=== PATIENT | female | born 1950 | race Hispanic/Latino ===

== ENCOUNTER 2020-02-12 09:02 | Inpatient (IN) | payer MEDICARE, OTHER ==
[~2020-02-12] VITALS: Ht 165.1 cm; Wt 104.3 kg
[2020-02-12] MEDS ORDERED: MORPHINE SULFATE INJ 4 MG/ML INJ 1ML IV SCH (09:30)
--- NOTE | 2020-02-12 09:35 | NUR ---
Ultrasound ETA is 45 minutes
[2020-02-12] MEDS ORDERED: HYDRALAZINE HCL 20 MG/ML VIAL IV STA (09:44)
[2020-02-12] MEDS ORDERED: MORPHINE SULFATE INJ 4 MG/ML INJ 1ML ONE ×2 (09:50→11:09)
[2020-02-12] MEDS ORDERED: HYDRALAZINE HCL 20 MG/ML VIAL ONE (11:09)
[2020-02-12] MEDS ORDERED: MORPHINE SULFATE 2 MG/ML SYR 1ML IV STA (11:14)
--- NOTE | 2020-02-12 11:17 | Diagnostic Imaging Report ---
CT BRAIN [facility] HISTORY: Altered mental status, remote stroke COMPARISON: None. Technique: Noncontrast axial scans were obtained from skull base to the vertex. Coronal and sagittal reconstructions obtained from the axial data. One or more of the following dose reduction techniques were used: Automated exposure control, adjustment of the mA and/or kV according to patient size, and/or utilization of iterative reconstruction technique. DISCUSSION: Scalp/Skull: Left pterional craniotomy changes. Right coronal calvarial bhupinder hole for ventricular shunt catheter. Brain sulci: Mildly prominent. Ventricles: Compensatory dilatation, especially of the left lateral ventricle. Right frontal approach ventricular shunt catheter terminates in the body of the left lateral ventricle. Extra-axial spaces: Aneurysm clips in the left parasellar region. No masses or fluid collections. Carotid siphon calcifications are present. Parenchyma: Extensive encephalomalacia throughout the left middle cerebral artery territory is compatible with remote infarct. Mild focal superior right frontal encephalomalacia is seen along the ventricular catheter tract. Otherwise, no masses, hemorrhage, or large vascular territory acute infarct. Dural sinuses: No abnormal densities. Sellar/Suprasellar region: Intact. Skull base: Intact. Incidental findings: Bilateral ocular lens replacement. IMPRESSION: 1. No acute intracranial abnormalities. 2. Left pterional craniotomy changes with aneurysm clips in the left parasellar region. 3. 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 4. Right frontal ventricular shunt catheter terminates in the body of the right lateral ventricle. No evidence for hydrocephalus with ex vacuo ventricular dilatation taken into account. Mild focal right superior frontal encephalomalacia is seen along the ventricular catheter tract. 5. Underlying generalized cerebral volume loss. Signed by: Dr. Alonso Orellana M.D. on 02/12/2020 11:14 AM
--- NOTE | 2020-02-12 11:20 | Diagnostic Imaging Report ---
EXAMINATION: TIB/FIB 2VW RT - HOPD INDICATION: Right leg pain COMPARISON: None FINDINGS: No acute fracture or dislocation. Alignment is anatomic. Soft tissues appear unremarkable. IMPRESSION: No acute osseous injury. Signed by: Destin Carroll MD on 02/12/2020 11:17 AM
--- NOTE | 2020-02-12 11:22 | Diagnostic Imaging Report ---
EXAMINATION: FEMUR 2 VIEW RT - HOPD INDICATION: Leg pain COMPARISON: None FINDINGS: No acute fracture or dislocation. Alignment is anatomic. Soft tissue granulomatous calcifications of the right upper thigh. Mild degenerative changes of the right hip joint. IMPRESSION: No acute osseous injury. Signed by: Destin Carroll MD on 02/12/2020 11:19 AM
--- NOTE | 2020-02-12 11:45 | Diagnostic Imaging Report ---
EXAM: RIGHT Lower Extremity Duplex Ultrasound INDICATION: ^PAIN COMPARISON: None TECHNIQUE: Paul scale, color Doppler and spectral waveform analysis of the unilateral lower extremity deep venous system was performed. FINDINGS: Exam limited by patient altered mental status and inability to cooperate. Common Femoral: Fully compressible with normal spontaneous waveforms. Proximal Greater Saphenous: Fully compressible. Femoral: Poorly visualized, but with spontaneous waveforms. Normal response to augmentation. Proximal Deep Femoral: Normal spontaneous waveforms. Popliteal: Fully compressible with normal spontaneous waveforms. Infrapopliteal: Patent and compressible. Dorsalis pedis artery. Patent with biphasic waveform. IMPRESSION: No evidence of right lower extremity DVT. Signed by: Destin Carroll MD on 02/12/2020 11:42 AM
[2020-02-12] MEDS ORDERED: LOSARTAN POTAS100 MG PO (11:47)
[2020-02-12] MEDS ORDERED: CLONIDINE HCL0.1 MG PO (11:47)
[2020-02-12] MEDS ORDERED: HYDROCHLOROTHIA25 MG (11:47)
[2020-02-12] MEDS ORDERED: CEFTRIAXONE SOD 1 GM VIAL IV SCH (12:15)
[2020-02-12] MEDS: CEFTRIAXONE SOD 1 GM/NS 50 ML 50 ML IV SCH (12:25)
--- NOTE | 2020-02-12 12:27 | Emergency Department Note ---
History of Present Illnes History of Present Illness Chief Complaint: Extremity Trauma/Pain History of Present Illness This is a 69 year old female Chief Complaint Comment Reports that she was just seen at [facility]'s office for constipation and right leg pain and given a shot of pain medication and sent here for evaluation. pt is nonverbal, contracted on right side, wheelchair bound and screaming in pain. Pt does not know medical history, Dr. Le's office called for medical history and medications. . Historian: Family Member, Medical Record Arrival Mode: Car Additional Treatment DIE SIZER: 30mg IM toradol at [facility] Onset (how long ago): day(s) (2) Location: RIGHT HIP Quality: PAIN SHARP Radiation: Denies non-radiation, Denies back, Denies neck, Denies extremity, Denies abdomen, Denies periumbilical, Denies flank, Denies proximal, Denies distal, Denies other Severity: moderate Onset quality: gradual Duration (how long): day(s) (2) Progression: worsening Context: Denies recent illness, Denies recent surgery, Denies recent immobilization, Denies recent travel, Denies trauma/injury, Denies new medications, Denies hx of DVT/PE, Denies non-compliance w/ medications, Denies other Relieving factors: rest Exacerbating factors: movement Associated symptoms: Denies denies other symptoms, Denies confusion, Denies chest pain, Denies cough, Denies diaphoresis, Denies fever/chills, Denies headaches, Denies loss of appetite, Denies malaise, Denies nausea/vomiting, Denies rash, Denies seizure, Denies shortness of breath, Denies syncope, Denies weakness, Denies other Treatments prior to arrival: none Past Medical/Family History Physician Review I have reviewed the patient's past medical and family history. Any updates have been documented here. Past Medical History Recent Fever: No Clinical Suspicion of Infectio: No New/Unexplained Change in Ment: No Past Medical History: Hypertension, CVA, Osteoarthritis Other Medical History: PAD Right sided weakness Past Surgical History: Cataract Removal Other Surgery: Brain surgery for CVA Social History Smoking Cessation: Never Smoker Counseling Performed: No Alcohol Use: None Any Illegal Drug Use: No Physically hurt or threatened: No Other Any Pre-Existing Lines (PICC,: No Review of Systems Review of Systems Constitutional: Reports no symptoms EENTM: Reports no symptoms Cardiovascular: Reports no symptoms Respiratory: Reports no symptoms Gastrointestinal: Reports no symptoms Genitourinary: Reports no symptoms Musculoskeletal: Reports as per HPI Integumentary: Reports no symptoms Psychological: Reports no symptoms Endocrine: Reports no symptoms Hematological/Lymphatic: Reports no symptoms Physical Exam Related Data Allergies: Coded Allergies: Penicillins (Verified Allergy, Unknown, 02/12/20) latex (Verified Allergy, Unknown, 02/12/20) Triage Vital Signs Vital Signs Date Time Temp Pulse Resp B/P (MAP) Pulse Ox O2 Delivery O2 Flow Rate FiO2 02/12/20 09:05 97.2 60 18 212/99 99 Room Air Vital signs reviewed: Yes Physical Exam CONSTITUTIONAL Constitutional: Present well-developed, Present well-nourished HENT HENT: Present normocephalic, Present atraumatic, Present oropharynx clear/moist, Present nose normal HENT L/R: Present left ext ear normal, Present right ext ear normal EYES Eyes: Reports PERRL, Reports conjunctivae normal NECK Neck: Present ROM normal PULMONARY Pulmonary: Present effort normal, Present breath sounds normal CARDIOVASCULAR Cardiovascular: Present regular rhythm, Present heart sounds normal, Present c apillary refill normal, Present normal rate GASTROINTESTINAL Abdominal: Present soft, Present nontender, Present bowel sounds normal GENITOURINARY Genitourinary: Present exam deferred SKIN Skin: Present warm, Present dry MUSCULOSKELETAL Musculoskeletal: Present ROM normal, Present tenderness (RIGHT HIP) NEUROLOGICAL Neurological: Present alert, Present oriented x 3, Present weakness (RIGHT HEMIPARESIS) PSYCHOLOGICAL Psychological: Present mood/affect normal, Present judgement normal Results Laboratory Lab results reviewed: Yes Imaging Imaging results reviewed: Yes Critical Care Time Total Critical Care Time (min): 45 Critical care time exclusive o: separately billable procedures Critcal care necessary due to: other (HYERTENSIVE CRISIS) Critcal care time spent by me: discussion w primary provider, evaluation patient response to tx, examination of patient, obtaining hx from patient/surrogate, order/perform tx or interventions, order/review laboratory studies, order/review radiographic studies Assessment & Plan Medical Decision Making MDM SYNOVITIS SCIATICA HTN CRISIS Reassessment Reassessment time: 12:26 Reassessment BETTER Assessment & Plan Final Impression: (1) Hypertensive crisis (2) Hip pain, right Last Vital Signs Date Time Temp Pulse Resp B/P (MAP) Pulse Ox O2 Delivery O2 Flow Rate FiO2 02/12/20 11:58 72 18 167/76 98 Room Air 02/12/20 09:05 97.2 Home Meds Reported Medications Hydrochlorothiazide (HYDROCHLOROTHIAZIDE) 25 Mg Tablet, 12.5 MG DAILY, #30 TAB 02/12/20 Losartan Potassium (LOSARTAN POTASSIUM) 100 Mg Tablet, 100 MG PO DAILY, TAB 02/12/20 Clonidine Hcl (CLONIDINE HCL) 0.1 Mg Tablet, 1 TAB PO BID, #60 TAB 02/12/20 Medications in the ED Morphine Sulfate 4 mg ONCE IV Last administered on 02/12/20at 10:00; Admin Dose 4 MG; Start 02/12/20 at 09:30; Stop 02/19/20 at 09:29 Morphine Sulfate 4 mg STK-MED ONCE .ROUTE ; Start 02/12/20 at 09:50; Stop 02/12/20 at 09:44; Status DC Hydralazine HCl 10 mg NOW STAT IV Last administered on 02/12/20at 11:05; Admin Dose 10 MG; Start 02/12/20 at 09:44; Stop 02/12/20 at 09:51; Status DC Hydralazine HCl 20 mg STK-MED ONCE .ROUTE ; Start 02/12/20 at 11:09; Stop 02/12/20 at 11:04; Status DC Morphine Sulfate 4 mg STK-MED ONCE .ROUTE ; Start 02/12/20 at 11:09; Stop 02/12/20 at 11:04; Status DC Morphine Sulfate 2 mg NOW STAT IV Last administered on 02/12/20at 11:05; Admin Dose 2 MG; Start 02/12/20 at 11:14; Stop 02/12/20 at 11:21; Status DC Ceftriaxone Sodium 1 gm Q24H IV ; Start 02/12/20 at 12:15; Stop 02/19/20 at 12:14; Status UNV Ceftriaxone Sodium 50 ml @ 100 mls/hr Q24H IV ; Start 02/12/20 at 12:30; Stop 02/19/20 at 12:29 IRIS RAYMOND MD Feb 12, 2020 12:27
[2020-02-12] MEDS ORDERED: CEFTRIAXONE SOD 1 GM/NS 50 ML 50 ML IV ONE (12:30)
--- OUTSIDE RECORDS SUMMARY | 2020-02-12 12:33 | XMS REPORT | Continuity of Care Document ---
Author Author [facility] t Organization [facility] Address [address] [place] [id number] Phone Unavailable Care Team Providers Care Ip Litigation Paralegal Name Role Phone IRIS RAYMOND Attphys Unavailable Problems This patient has no known problems. Allergies, Adverse Reactions, Alerts This patient has no known allergies or adverse reactions. Medications This patient has no known medications. Procedures This patient has no known procedures. Results Test Description Test Time Test Comments Results Result Comments Source US EXREMEITY VEINS UNI-HOPD 2020-02-12 11:39:00 [place] [address] Patient Name: ANTONIO DAVILA MR #: [id number] : 1950 Age/Sex: 69/F Req #: [id number] Adm Physician: Ordered by: IRIS RAYMOND MD Report #: [id number] Location: [facility] Room/Bed: Procedure: [id number] HOPD/US EXREMEITY VEINS UNI-HOPD Exam Date: 02/12/20 Exam Time: 1134 REPORT STATUS: Signed EXAM: RIGHT Lower Extremity Duplex Ultrasound INDICATION: PAIN COMPARISON: None TECHNIQUE: Paul scale, color Doppler and spectral waveform analysis of the unilateral lower extremity deep venous system was performed. FINDINGS: Exam limited by patient altered mental status and inability to cooperate. Common Femoral: Fully compressible with normal spontaneous waveforms. Proximal Greater Saphenous: Fully compressible. Femoral: Poorly visualized, but with spontaneous waveforms. Normal response to augmentation. Proximal Deep Femoral: Normal spontaneous waveforms. Popliteal: Fully compressible with normal spontaneous waveforms. Infrapopliteal: Patent and compressible. Dorsalis pedis artery. Patent with biphasic waveform. IMPRESSION: No evidence of right lower extremity DVT. Signed by: Jay Bryant MD on 02/12/2020 11:42 AM Dictated By: JAY BRYANT MD 1142 Transcribed By: KACI on 02/12/20 114 COPY TO: IRIS RAYMOND MD FEMUR 2 VIEW RT - HOPD 2020-02-12 11:17:00 [place] [address] Patient Name: ANTONIO DAVILA MR #: [id number] : 1950 Age/Sex: 69/F Req #: [id number] Adm Physician: Ordered by: IRIS RAYMOND MD Report #: [id number] Location: [facility] Room/Bed: Procedure: [id number] HOPD/FEMUR 2 VIEW RT - HOPD Exam Date: Exam Time: REPORT STATUS: Signed EXAMINATION: FEMUR 2 VIEW RT - HOPD INDICATION: Leg pain COMPARISON: None FINDINGS: No acute fracture or dislocation. Alignment is anatomic. Soft tissue granulomatous calcifications of the right upper thigh. Mild degenerative changes of the right hip joint. IMPRESSION: No acute osseous injury. Signed by: Jay Bryant MD on 02/12/2020 11:19 AM Dictated By: JAY BRYANT MD 1119 Transcribed By: KACI on 02/12/20 1119 COPY TO: IRIS RAYMOND MD TIB/FIB 2VW RT - HOPD 2020-02-12 11:16:00 [place] [address] Patient Name: ANTONIO DAVILA MR #: [id number] : 1950 Age/Sex: 69/F Req #: [id number] Adm Physician: Ordered by: IRIS RAYMOND MD Report #: [id number] Location: [facility] Room/Bed: Procedure: [id number] HOPD/TIB/FIB 2VW RT - HOPD Exam Date: 02/12/20 Exam Time: 1115 REPORT STATUS: Signed EXAMINATION: TIB/FIB 2VW RT - HOPD INDICATION: Right leg pain COMPARISON: None FINDINGS: No acute fracture or dislocation. Alignment is anatomic. Soft tissues appear unremarkable. IMPRESSION: No acute osseous injury. Signed by: Jay Bryant MD on 02/12/2020 11:17 AM Dictated By: JAY BRYANT MD 1117 Transcribed By: KACI on 02/12/20 1117 COPY TO: IRIS RAYMOND MD CT BRAIN WO-HOPD 2020-02-12 11:07:00 [place] [address] Patient Name: ANTONIO DAVILA MR #: [id number] : 1950 Age/Sex: 69/F Req #: [id number] Adm Physician: Ordered by: IRIS RAYMOND MD Report #: [id number] Location: [facility] Room/Bed: Procedure: [id number] HOPD/CT BRAIN WO-HOPD Exam Date: 02/12/20 Exam Time: 1059 REPORT STATUS: Signed CT BRAIN WO-HOPD HISTORY: Altered mental status, remote stroke COMPARISON: None. Technique: Noncontrast axial scans were obtained from skull base to the vertex. Coronal and sagittal reconstructions obtained from the axial data. One or more of the following dose reduction techniques were used: Automated exposure control, adjustment of the mA and/or kV according to patient size, and/or utilization of iterative reconstruction technique. DISCUSSION: Scalp/Skull: Left pterional craniotomy changes. Right coronal calvarial bhupinder hole for ventricular shunt catheter. Brain sulci: Mildly prominent. Ventricles: Compensatory dilatation, especially of the left lateral ventricle. Right frontal approach ventricular shunt catheter terminates in the body of the left lateral ventricle. Extra-axial spaces: Aneurysm clips in the left parasellar region. No masses or fluid collections. Carotid siphon calcifications are present. Parenchyma: Extensive encephalomalacia throughout the left middle cerebral artery territory is compatible with remote infarct. Mild focal superior right frontal encephalomalacia is seen along the ventricular catheter tract. Otherwise, no masses, hemorrhage, or large vascular territory acute infarct. Dural sinuses: No abnormal densities. Sellar/Suprasellar region: Intact. Skull base: Intact. Incidental findings: Bilateral ocular lens replacement. IMPRESSION: 1. No acute intracranial abnormalities. 2. Left pterional craniotomy changes with aneurysm clips in the left parasellar region. 3. 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 4. Right frontal ventricular shunt catheter terminates in the body of the right lateral ventricle. No evidence for hydrocephalus with ex vacuo ventricular dilatation taken into account. Mild focal right superior frontal encephalomalacia is seen along the ventricular catheter tract. 5. Underlying generalized cerebral volume loss. Signed by: Dr. Alonso Orellana M.D. on 02/12/2020 11:14 AM Dictated By: ALONSO ORELLANA MD 13 Transcribed By: KACI on 02/12/201113 COPY TO: IRIS RAYMOND MD
--- NOTE | 2020-02-12 12:46 | Diagnostic Imaging Report ---
EXAM: CT right hip WITHOUT contrast INDICATION: Hip pain. Decreased range of motion. Pain not responding to conservative management. COMPARISON: None. TECHNIQUE: Right hip was scanned utilizing a multidetector helical scanner from the iliac crest to the pubic symphysis without administration of IV contrast. Coronal and sagittal reformations were obtained. Routine protocol was performed. IV CONTRAST: None ORAL CONTRAST: Water COMPLICATIONS: None RADIATION DOSE: Total DLP: 128 mGy*cm Estimated effective dose: (DLP x 0.015 x size factor) mSv CTDIvol has been reviewed. It is below the limits set by the Radiation Protocol Committee (RPC). Dose modulation, iterative reconstruction, and/or weight based adjustment of the mA/kV was utilized to reduce the radiation dose to as low as reasonably achievable. FINDINGS: No acute fracture, subluxation or avascular necrosis. Diffuse osteopenia. No osseous erosion. Scattered degenerative arthrosis about the visualized lumbosacral spine and pelvis. Pseudoarthrosis on the right at the lumbosacral junction. Mild degenerative arthrosis in the right hip joint with peripheral osteophytosis at the superior lateral acetabulum. Small bone island in the femoral head. Physiologic amount of fluid in the hip joint. Mild nonspecific superficial soft tissue edema about the lateral lower abdominal wall superficial fat best seen on axial image 11. No radiopaque foreign body. Injection granulomas in the posterior subcutaneous fat. IMPRESSION: No acute fracture, subluxation or avascular necrosis about the right hip. Diffuse osteopenia. No osseous erosion. Signed by: Dr. Go Day M.D. on 02/12/2020 12:43 PM
--- NOTE | 2020-02-12 13:13 | NUR ---
[facility] called for transport, ETA is 35-40 minutes
--- NOTE | 2020-02-12 13:23 | NUR ---
Report to Osmel RN
[2020-02-12] MEDS ORDERED: MORPHINE SULFATE 2 MG/ML SYR 1ML IV ONE (13:45)
--- NOTE | 2020-02-12 14:24 | NUR ---
ASSUMED CARE. PATIENT ARRIVED TO UNIT AT APPROXIMATELY 1415. ACYANOTIC. RESTING IN BED AWAKE AND ALERT. ACYANOTIC. NO DISTRESS NOTED. CALL LIGHT IN REACH. SIDE RAILS UP X2. BED LOWERED FROM HIGHEST POSITION AND LOCKED. PATIENT ASSISTED INTO GOWN AND RE-POSITIONED. WEDGE FOUND UNDER PATIENT'S RIGHT LEG, ELEVATING IT. PATIENT REPORTS PAIN. PREPARING TO GIVE MEDICATION ORDERED FOR PAIN.
[2020-02-12 14:45] VITALS: BP_SYST 167; BP_SYST 169; BP_DIAS 71; BP_DIAS 77
[2020-02-12] MEDS: MORPHINE SULFATE INJ 4 MG/ML INJ 1ML IV PRN (14:57)
[2020-02-12 16:27] VITALS: BP 169/77
[2020-02-12 20:00] VITALS: BP 171/72
[2020-02-12] MEDS: ONDANSETRON HCL INJ 2MG/ML 2ML 2 MG/ML VIAL IV PRN (20:08)
--- NOTE | 2020-02-12 20:35 | NUR ---
BILL HOFFMAN(ALEKSANDER) R/E HOME MEDS; [facility]
[2020-02-12 20:41] VITALS: BP 171/72
--- NOTE | 2020-02-12 22:05 | NUR ---
HISTORY [id number] pcp: [facility]: Rajeev hoang.
[2020-02-12] MEDS ORDERED: HYDRALAZINE HCL 20 MG/ML VIAL IV PRN (22:15)
[2020-02-12] MEDS: LACTATED RINGER'S 1,000 ML INJ SCH (22:15)
[2020-02-12] MEDS ORDERED: DIAZEPAM 5 MG TAB PO ONE (22:15)
[2020-02-12] MEDS ORDERED: BISACODYL 10 MG SUPP PR PRN (22:15)
[2020-02-12] MEDS ORDERED: BACLOFEN 10 MG TAB PO ONE (22:30)
--- NOTE | 2020-02-12 23:05 | Diagnostic Imaging Report ---
EXAM: Abdomen Radiograph 1 View INDICATION: ^abdominal pain COMPARISON: None FINDINGS: No abnormalities in the lower chest. DEVULCANIZER LOADER shunt catheter projects in the right upper abdomen. Normal volume of stool in the colon. No dilated loops of small bowel. No abnormal abdominal calcifications.. No abnormal soft tissue masses. No pneumoperitoneum. No acute osseous abnormality. Cholecystectomy clips. IMPRESSION: No acute abdominal radiographic abnormality. Signed by: Jairo Hernandez DO on 02/12/2020 11:02 PM
[2020-02-13] VITALS (8 sets, daily range): BP systolic 117–156; BP diastolic 46–85
[2020-02-13] MEDS: PANTOPRAZOLE 40 MG 10ML VIAL IV SCH ×2 (02:28→13:54)
--- NOTE | 2020-02-13 03:10 | History and Physical ---
PRIMARY CARE DOCTOR: Dr. Aly Le. The patient's covering physician is Dr. Gareth Boo. CHIEF COMPLAINT: Nausea and emesis. HISTORY OF PRESENT ILLNESS: The patient is a pleasant 69-year-old female with nausea and emesis. The patient went to her primary care doctor's office to evaluate possibility of constipation. The patient was having multiple nausea and probable few bouts of emesis. The patient with limited history due to aphasia. The patient more recently has had extensive leg pain, which seems to be cramping. The patient denies any chronic cramping issues. When the patient is in the ER, she is noted with blood pressure 212/96. The patient received Toradol. The patient received some morphine as well. Due to refractoriness of symptoms, the patient is admitted to the hospital. PAST MEDICAL HISTORY: History of large left MCA CVA, left pterional craniotomy with aneurysmal clipping, F[employer] REPORTER shunt placement, hypertension, osteoarthritis, right spastic hemiparesis, and peripheral artery disease in history. MEDICATIONS: Medication list reviewed per the chart record. ALLERGIES: PENICILLINS AND LATEX. SOCIAL HISTORY: No smoking. No drinking. No drugs. FAMILY HISTORY: Noncontributory to this syndrome. REVIEW OF SYSTEMS: Cannot get reliably as the patient has aphasia. PHYSICAL EXAMINATION: VITAL SIGNS: Afebrile, vital signs noted, reviewed per the chart record. Last blood pressure now 171/73, heart rate 82. GENERAL: In bed, in extreme pain, if she moves due to right leg cramping. HEENT: Normocephalic and atraumatic. NECK: Supple. Throat midline. LUNGS: Bilateral air entry, limited, but clear. CARDIOVASCULAR: S1, S2. No murmurs, rubs, or gallops. ABDOMINAL: Soft and nontender. EXTREMITIES: No clubbing. No cyanosis. There is a spastic right side. There is active cramping on the right side that recurs very easily. LABORATORY DATA: 6.6 white count, 40 hematocrit, 215 platelets. 3.3 potassium, 13 BUN and 1.[address] with no acute changes, lot of chronic changes. Extremity venous ultrasound with no right lower extremity DVT. Hip CT with no acute fracture, subluxation, or avascular necrosis. Femoral x-ray with no osseous injury, acute. Tibia-fibula x-ray with no acute osseous injury. IMPRESSION AND PLAN: 1. Treat as emergency hypertension. 2. Refractory spasms, right leg cramping, severe. 3. History of cerebrovascular accident, left middle cerebral artery. 4. Right spastic hemiparesis. 5. Aphasia. 6. History of aneurysmal clipping long ago. 7. Hypertension. 8. Osteoarthritis reported. 9. Syndrome of emesis/nausea, treated as a gastroenteritis for now. 10. Reported constipation. Slowly bring down blood pressure. We will give some low-level antispasmodic medications. The patient will have conventional pain medicine. Neurologic consultation has been requested to try to get the patient's specific therapy. Slowly bring down blood pressure. Home medicines have been resumed. P.r.n. medicines also be given for blood pressure. We will address the possibility of constipation and gastroenteritis. GI consult given her symptoms of pain when we touch her abdomen, although it is nonsurgical. Thank you very much, Dr. Le. Please call for questions. MD JIMMIE Saleem/GEORGE /[id number]
[2020-02-13 06:03] LABS: BASOPHILS % 0.1 % (0.0-1.0); HEMATOCRIT 40.8 % (34.2-44.1); HEMOGLOBIN 13.2 g/dL (12.0-16.0); LYMPHOCYTES # (AUTO) 1.1 (1.0-3.2); LYMPHOCYTES % 12.5 % (18.0-39.1); MEAN CORPUSCULAR HEMOGLOBIN 31.2 pg (28-32); MEAN CORPUSCULAR HGB CONC 32.4 g/dL (31-35); MEAN CORPUSCULAR VOLUME 96.5 fL (81-99); MONOCYTES # (AUTO) 0.4 (0.2-0.8); MONOCYTES % 4.3 % (4.4-11.3); NEUTROPHILS # (AUTO) 7.5 (2.1-6.9); NEUTROPHILS % 82.9 % (38.7-80.0); PLATELET COUNT 214 x10e3/uL (140-360); RED BLOOD COUNT 4.23 x10e6/uL (3.6-5.1); RED CELL DISTRIBUTION WIDTH 14.1 % (11.7-14.4)
[2020-02-13 06:27] LABS: ALANINE AMINOTRANSFERASE 10 IU/L (0-55); ALBUMIN 3.1 g/dL (3.5-5.0); ALKALINE PHOSPHATASE 76 IU/L (40-150); ANION GAP 11.8 mmol/L (8-16); BLOOD UREA NITROGEN 15 mg/dL (7-26); BUN/CREATININE RATIO 21 (6-25); CALCIUM 8.5 mg/dL (8.4-10.2); CARBON DIOXIDE 23 mmol/L (22-29); CHLORIDE 110 mmol/L (98-107); CREATININE, SERUM 0.71 mg/dL (0.57-1.11); EST GLOMERULAR FILTRATION RATE > 60 ML/MIN (60-); GLUCOSE 109 mg/dL (74-118); MAGNESIUM 2.1 MG/DL (1.3-2.1); POTASSIUM 3.8 mmol/L (3.5-5.1); SODIUM 141 mmol/L (136-145)
--- NOTE | 2020-02-13 07:30 | NUR ---
PATIENT IS ALERT TO SELF AND PLACE AND IS IN STABLE CONDITION WITH NO S/S OF RESPIRATORY DISTRESS. NO PAIN VOICED AT THIS TIME. LOWER EXTREMITY/FEET REPOSITION AND ELEVATED. JACOB INTACT AND DRAINING- URINE IS YELLOW AND CLEAR. BED ALARM APPLIED. CALL LIGHT IS WITHIN REACH, PATIENT INSTRUCTED TO CALL FOR ASSISTANCE NEEDED.
[2020-02-13] MEDS: CLONIDINE HCL 0.1 MG TAB PO SCH ×2 (08:54→17:18)
[2020-02-13] MEDS: HYDROCHLOROTHIAZIDE 25 MG TAB PO SCH (08:54)
[2020-02-13] MEDS: LACTATED RINGER'S 1,000 ML INJ SCH ×2 (08:54→19:14)
[2020-02-13] MEDS: BACLOFEN 10 MG TAB PO SCH ×3 (08:54→21:40)
[2020-02-13] MEDS: LOSARTAN POTASSIUM 100 MG TAB PO SCH (08:54)
[2020-02-13] MEDS: ONDANSETRON HCL INJ 2MG/ML 2ML 2 MG/ML VIAL IV PRN (12:27)
[2020-02-13] MEDS: CEFTRIAXONE SOD 1 GM/NS 50 ML 50 ML IV SCH (12:27)
[2020-02-13] MEDS: MORPHINE SULFATE INJ 4 MG/ML INJ 1ML IV PRN (12:29)
[2020-02-13] MEDS: ENOXAPARIN SOD INJ 40 MG/0.4 ML SYR SC SCH (17:18)
--- NOTE | 2020-02-13 19:21 | NUR ---
PATIENT IS IN STABLE CONDITION WITH NO S/S OF RESPIRATORY DISTRESS. NO PAIN VOICED. IV FLUIDS INFUSING. JACOB INTACT AND DRAINING. LOWER EXTREMITIES ELEVATED. BED ALARM APPLIED. CALL LIGHT IS WITHIN REACH, PATIENT INSTRUCTED TO CALL FOR ASSISTANCE NEEDED. BEDSIDE SHIFT REPORT GIVEN TO ONCOMING NURSE.
--- NOTE | 2020-02-13 19:30 | NUR ---
Patient visited in room during nursing rounds. Patient alert and oriented x2 and mostly micronesian speaking. Pt understands little bulgarian. Chairez in place for urinary retention draining clear yellow urine. Pt has frequent and intermittent pain on right hip and on right leg. Will medicate pt accordingly. Pt laying in bed with head of bed elevated. Call nicholson within reach. Will monitor closely.
--- NOTE | 2020-02-13 21:30 | NUR ---
Nurse (Juarez) spoke with patient's daughter (Angelia) via phone and gave update on patient's condition per her and family's request. All questions answered to her satisfaction.
--- NOTE | 2020-02-13 21:45 | NUR ---
STAT MRI of lumbar spine ordered by Dr. Heaton. [employer] placed a page to on-call certified performance technologist and patient plus patient's daughter made aware of test ordered. Will verify with certified performance technologist if pt safe to have MRI tonight since pt has history of craniotomy in the past and that patient has some "metal" clips on her skull.
--- NOTE | 2020-02-13 22:45 | Consultation ---
DATE OF CONSULTATION: 02/13/2020 HISTORY: This is a 69-year-old female, aphasic, so most of the history really is from the chart. It was difficult to obtain history from her. 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 The patient is admitted with multiple medical problems and the reason neurologist consulted is because of pain mainly in the right lower extremity, mainly in the thigh. Per the record, the patient had x-rays and CT scan of the hip and right lower extremity as well as an ultrasound of the right lower extremity, which did not show any DVT or any fractures to explain the symptoms, as such Neurology is being consulted. So far, no definite relief on the current medications. She has been started on baclofen. Her blood pressure on admission was also high. As mentioned, the patient does not have any new neurologic deficits. She has an old right spastic hemiplegia with aphasia. PAST MEDICAL HISTORY: 1. Left MCA, status post craniotomy with aneurysmal clipping and GOLF CART REPAIRER shunt placed. 2. Hypertension. 3. Osteoarthritis. 4. Peripheral artery disease. MEDICATIONS: Per list including baclofen one t.i.d. ALLERGIES: PENICILLIN AND LATEX. SOCIAL HISTORY: No abuse of drugs or alcohol. FAMILY HISTORY: Noncontributory. REVIEW OF SYSTEMS: Difficult to obtain because of aphasia, attempted 14 points. PHYSICAL EXAMINATION: VITAL SIGNS: Temperature 98.1, respiratory rate 16, pulse rate 80, blood pressure 121/60, it was earlier 171/73, heart rate is 82 and regular. HEAD AND NECK: No meningeal signs. LUNGS: Good air entry. ABDOMEN: Soft. NEUROLOGIC: The patient is awake and alert. She is aphasic. She has maybe more and more sensory, but if she more or less has global type of aphasia. Right spastic hemiplegia noted with right facial asymmetry. Deep tendon flexes are 3 all over. Plantars are flexor. Sensory was unreliable. She does not walk or ambulate. She is having neuropathy in her right lower extremity. IMAGING STUDIES: CT scan of the head as noted above and other images above. LABORATORY DATA: Labs including calcium, magnesium, electrolytes are normal. ASSESSMENT AND PLAN: Pain in the right lower extremity, which seems to be more than what she had before from her chronic spastic hemiplegia. The location and the local tenderness suggest a local process such as deep venous thrombosis; however, imaging was not sure of that. The patient is already started on anticoagulation. We will obtain an MRI of the lumbar spine to rule out the possibility of superimposed radiculopathy. We will increase her baclofen and titrate up slowly. We will add Neurontin and titrate up. We will also ask Physical Therapy to evaluate her. I suggest repeating the ultrasound of the right lower extremity or obtaining another imaging modality of the vasculature as the risk and the possibility of deep venous thrombosis is very high. Deferred decision about the treatment for reported potential cellulitis to the primary service. As far as her static neurologic deficits, not much can be done at this point. We will keep observing her. I will keep her on neuro checks. She will be receiving a physical and speech therapy in the hospital. Izzy Heaton MD AM/GEORGE /[id number]
--- NOTE | 2020-02-13 23:00 | NUR ---
Received call from scrub technician and craniotomy history was mentioned. scrub technician stated she would verify with Radiologist if pt can safely undergo MRI test tonight.
--- NOTE | 2020-02-13 23:10 | NUR ---
Dr. Darlene Kirkland came and visited pt in room. MD aware of pt condition.
--- NOTE | 2020-02-13 23:25 | NUR ---
Received call from oil and gas field technician (Martha) that after verifying with Radiologist , it was decided that it would be unsafe for patient to undergo with the MRI test due to patient's history of craniotomy with metal clips placed on her skull. Will notify Dr. Heaton of this decision.
--- NOTE | 2020-02-13 23:28 | NUR ---
Called Dr. Heaton and informed him of Radiologist recommendation that pt is unsafe to have MRI test due to history of metal clips placed on her skull during her past craniotomy procedure (1997). Dr Heaton aware and cancelled MRI order and replaced it with CT of lumbar spine (to r/o radiculopathy). Radiology dept aware of new order.
--- NOTE | 2020-02-13 23:50 | NUR ---
Patient went down for CT of lumbar spine via hospital bed and accompanied by 2 radiology techs. Patient left unit in stable condition.
[2020-02-14] VITALS (8 sets, daily range): BP systolic 100–152; BP diastolic 50–64
--- NOTE | 2020-02-14 00:10 | NUR ---
Patient back in room after CT test done. Pt in stable condition and denies any pain at this time. Pt comfortable in bed.
--- NOTE | 2020-02-14 00:39 | Diagnostic Imaging Report ---
History: Back pain and right hip pain. Comparison studies: None Technique: Axial images were obtained through the lumbar spine from T12-S1. Coronal and sagittal images reconstructed from the axial data. Dose modulation, iterative reconstruction, and/or weight based adjustment of the mA/kV was utilized to reduce the radiation dose to as low as reasonably achievable. Intravenous contrast: None Findings: The usual 5 non-rib bearing lumbar vertebral bodies are present. Alignment: Normal lordosis. No scoliosis. No subluxation. Soft tissues: Mild atherosclerotic calcification in the abdominal aorta and its branches. Paraspinal muscles: Unremarkable. Sacroiliac joints: Mild bilateral degenerative changes with subchondral sclerosis, osteophyte and trace vacuum phenomenon in left sacroiliac joint. Vertebrae: Mild diffuse osseous demineralization. No fractures, infection or neoplasm. Degenerative changes: L1-L2: No abnormalities. L2-L3: No abnormalities. L3-L4: Disc bulge asymmetric to left results in mild canal stenosis. Mild bilateral facet arthrosis. Mild left foraminal stenosis. L4-L5: Mild degenerative disc disease with trace vacuum. Disc bulge without canal stenosis. Moderate right and mild left facet arthrosis. Mild right foraminal stenosis. L5-S1: Mild bilateral facet arthrosis. No significant canal or foraminal stenosis. IMPRESSION: 1. No acute lumbar spine fracture or dislocation. 2. Mild lumbar spondylosis, with mild canal stenosis at L3-L4. Mild left foraminal stenosis at L3-L4 and mild right foraminal stenosis at L4-L5. 3. Ligament, spinal cord and or vascular abnormalities cannot be excluded on the basis of this examination. Signed by: Dr. Kinjal Tran M.D. on 02/14/2020 12:36 AM
[2020-02-14] MEDS: PANTOPRAZOLE 40 MG 10ML VIAL IV SCH ×2 (02:40→13:41)
[2020-02-14] MEDS: LACTATED RINGER'S 1,000 ML INJ SCH ×2 (04:50→13:59)
--- NOTE | 2020-02-14 07:13 | NUR ---
02/13/20 1800 Progress note: Subjective: Events noted. The patient was complaining of pain on the right thigh. The patient had previous CVA with resultant right-sided hemiparesis. She is aphasic. She has a previous craniotomy and aneurysmal clipping the patient presented with right hip pain and underwent work-up with imaging studies including CT of the hip, tibia/fibula x-rays,abdominal x-rays and venous Doppler study.No reported shortness of breath or chest pain Results noted below. Objective: General: Patient alert follows commands. Complains of pain in the right hip. Vital signs: Blood pressure 120/85, respiration 21, pulse 83, temperature 97.8 Physical exam: Patient aphasic. Head: Sequela noted on the left side from previous craniotomy. Neck: Supple Lungs: Clear to auscultation Heart: Regular rate and rhythm no murmurs or gallops Abdomen soft nontender Extremities: Redness noted and inflammation on the right thigh and spasticity. Imaging studies: 1. Right hip x-rays: IMPRESSION: No acute fracture, subluxation or avascular necrosis about the right hip. Diffuse osteopenia. No osseous erosion. 2. Tibia/fibula right: IMPRESSION: No acute osseous injury. 3. FEMUR 2 VIEW RT - IMPRESSION: No acute osseous injury 4. Right lower extremity duplex ultrasound: Impression: No evidence of right lower extremity DVT CT brain: Impression PER READIOLOGY REPORT MPRESSION: 1. No acute intracranial abnormalities. 2. Left pterional craniotomy changes with aneurysm clips in the left parasellar region. 3. 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 4. Right frontal ventricular shunt catheter terminates in the body of the right lateral ventricle. No evidence for hydrocephalus with ex vacuo ventricular dilatation taken into account. Mild focal right superior frontal encephalomalacia is seen along the ventricular catheter tract. 5. Underlying generalized cerebral volume loss Assessment: IMPRESSION AND PLAN: 1. Hypertensive urgency. Resolved 2. Refractory spasms, right leg cramping, severe. 3. History of cerebrovascular accident, left middle cerebral artery. 4. Cellulitis right thigh? 5. Right spastic hemiparesis/Aphasia. 6. History of aneurysmal clipping. 7. Previous craniotomy 8. Osteoarthritis reported. 9. Gastroenteritis 10. Nausea and vomiting improved 11 Reported constipation. Plan of care: Neuro consultation requested DVT prophylaxis Request PT OT evaluation Continue antibiotics empirically. Monitor labs. Lumbar CT ORDER
[2020-02-14] MEDS: CLONIDINE HCL 0.1 MG TAB PO SCH ×2 (08:50→17:00)
[2020-02-14] MEDS: LOSARTAN POTASSIUM 100 MG TAB PO SCH (09:50)
[2020-02-14] MEDS: MORPHINE SULFATE INJ 4 MG/ML INJ 1ML IV PRN (09:52)
[2020-02-14] MEDS: ONDANSETRON HCL INJ 2MG/ML 2ML 2 MG/ML VIAL IV PRN (09:52)
[2020-02-14] MEDS: BACLOFEN 10 MG TAB PO SCH ×3 (09:52→20:30)
[2020-02-14] MEDS: HYDROCHLOROTHIAZIDE 25 MG TAB PO SCH (09:52)
[2020-02-14] MEDS: GABAPENTIN 100 MG CAP PO SCH ×3 (09:52→20:30)
--- NOTE | 2020-02-14 11:54 | NUR ---
Angelia (patient's daughter) states, "My mother does not have POA, but my dad signs consents for her."
[2020-02-14] MEDS: CEFTRIAXONE SOD 1 GM/NS 50 ML 50 ML IV SCH (12:40)
[2020-02-14] MEDS: ENOXAPARIN SOD INJ 40 MG/0.4 ML SYR SC SCH (17:00)
--- NOTE | 2020-02-14 19:10 | NUR ---
Patient visited in room during nursing rounds. Patient alert and oriented x2 and mostly south sudanese speaking. Pt understands little portuguese and has quite of an expressive aphasia. Chairez in place for urinary retention draining clear yellow urine. Pt has intermittent pain on right hip and on right leg especially when attempting to move or be repositioned in bed. Will medicate pt accordingly. On IVF (LR at 100ml/hr). Pt laying in bed with head of bed elevated. (Albert) at bedside. Call nicholson within reach. Will monitor closely.
--- NOTE | 2020-02-14 19:10 | NUR ---
Report given to oncoming nurse of patient's status. Resting in bed. No s/s of acute distress noted. Side rails upx2, call light within reach, bed alarm on, at bedside.
--- NOTE | 2020-02-14 20:13 | Progress Note ---
DATE: 02/14/2020 This is in coverage of Dr. Boo. SUBJECTIVE: Per at the bedside, he does not want me to wake her up. However, the patient still has right hip pain. does not recall seeing any redness of her right hip or right thigh. OBJECTIVE: VITAL SIGNS: Temperature 98.6, pulse 57, respiratory rate 18, and blood pressure 125/50. GENERAL: Sleeping. The patient appears comfortable. SKIN: No obvious rash I can see. LUNGS: Breathing comfortably. HEART: Regular rate and rhythm. ABDOMEN: Does appear to be distended. NEUROLOGIC: Sleeping. PSYCHIATRIC: Sleeping. LABORATORY DATA: COVID-19 negative. ASSESSMENT AND PLAN: 1. Right hip pain, unclear etiology. There is no evidence of deep venous thrombosis. No evidence of radiculopathy that we can see on lumbar CT. Unfortunately, MRI is not possible due to aneurysm clips. Per , her pain is worse when she lay flat, which is opposite of radiculopathy. However, based on his description, it is probably still some sort of radiculopathy or neuropathy. Neurology is already on-board. If etiology is still unclear, may want to consider orthopedic evaluation. We will continue baclofen for now. 2. Hypertensive crisis, resolved. 3. Nausea and vomiting. GI has been consulted. 4. Old large middle cerebral artery stroke with right-sided weakness. 5. Gastrointestinal and deep venous thrombosis prophylaxis. Lovenox. Yiching MD HERMELINDA Santo/GEORGE /[id number] PHILLIP
--- NOTE | 2020-02-14 20:53 | Progress Note ---
DATE: 02/14/2020 SUBJECTIVE: The patient with pain in her right lower extremity with CT of the lumbar spine was done, shows spondylosis. She did not have an MRI. Does not explain the severity of the pain in her right leg, which at this point being treated for cellulitis. There are no known neurologic complaints. The patient tolerating Neurontin and baclofen very well. MEDICATIONS: Per medications. PHYSICAL EXAMINATION: Aphasic, right spastic hemiplegia. 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 Her right leg pain most likely is related to cellulitis, second on the differential is DVT, which has been ruled out so far. RECOMMENDATIONS: 1. Continue with the baclofen and Neurontin same dose. 2. Physical therapy. 3. Antibiotics per primary service for cellulitis. 4. DVT prophylaxis and treatment per primary service. Izzy Heaton MD AM/GEORGE /[id number]
[2020-02-15] VITALS (8 sets, daily range): BP systolic 128–157; BP diastolic 50–61
[2020-02-15] MEDS: LACTATED RINGER'S 1,000 ML INJ SCH ×3 (00:05→20:23)
[2020-02-15] MEDS: PANTOPRAZOLE 40 MG 10ML VIAL IV SCH ×2 (02:30→15:31)
[2020-02-15] MEDS: BACLOFEN 10 MG TAB PO SCH ×3 (08:59→22:33)
[2020-02-15] MEDS: LOSARTAN POTASSIUM 100 MG TAB PO SCH (08:59)
[2020-02-15] MEDS: HYDROCHLOROTHIAZIDE 25 MG TAB PO SCH (08:59)
[2020-02-15] MEDS: CLONIDINE HCL 0.1 MG TAB PO SCH ×2 (08:59→17:02)
[2020-02-15] MEDS: GABAPENTIN 100 MG CAP PO SCH ×3 (08:59→22:33)
[2020-02-15] MEDS: CEFTRIAXONE SOD 1 GM/NS 50 ML 50 ML IV SCH (13:25)
[2020-02-15] MEDS: ENOXAPARIN SOD INJ 40 MG/0.4 ML SYR SC SCH (17:03)
--- NOTE | 2020-02-15 19:20 | NUR ---
BEDSIDE SHIFT REPORT RECEIVED. PATIENT IS RESTING IN BED. RESP EVEN AND UNLABORED. PT C/O RIGHT HIP AND LEG PAIN. WILL MEDICATE PER MAR. EDUCATED PT ABOUT FALL PRECAUTIONS. AT BED SIDE. CALL LIGHT WITH IN EASY REACH. INSTRUCTED PT TO USE CALL LIGHT FOR ALL THE NEEDS. BED IS LOW AND LOCKED. SIDE RAILS X2. BED ALARM IS ON. PT DENIES NEEDS AT THIS TIME.
--- NOTE | 2020-02-15 23:33 | NUR ---
Progress note 02/15/20 Subjective: Events noted. The patient was complaining of pain on the right thigh. As per , thigh pain is worse when the patient lays flat, neurology will evaluate. She is aphasic. Review of systems: Unable to perform due to aphasia. Objective: Vital signs: Temperature 97.6, pulse 62, respirations 18, pulse ox 95% on room air, BP 148/50. General: Patient alert follows commands. Complains of pain in the right hip.Patient aphasic. Head: Sequela noted on the left side from previous craniotomy. Neck: Supple Lungs: Clear to auscultation Heart: Regular rate and rhythm no murmurs or gallops Abdomen soft nontender Extremities: Redness noted and inflammation on the right thigh and spasticity. 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 She also complains of worsening leg pain, leg cramping. History was very limited due to patient being aphasic. At the ER BP was 212/96, she received Toradol and morphine. IMPRESSION AND PLAN: 1. Hypertensive urgency. Resolved 2. Refractory spasms, right leg cramping, severe. 3. History of cerebrovascular accident, left middle cerebral artery. 4. Cellulitis right thigh? 5. Right spastic hemiparesis/Aphasia. 6. History of aneurysmal clipping. 7. Previous craniotomy 8. Osteoarthritis reported. 9. Gastroenteritis 10. Nausea and vomiting improved 11 Reported constipation. 02/15/2020 Stable vital signs. No new labs. Right hip pain of unclear etiology, continue pain control and DVT prophylaxis. Lumbar CT showed no evidence of radiculopathy or venous thrombosis. MRI not possible due to aneurysm clips. Consider an orthopedic evaluation. Plan of care: Continue medications BP control Glycemic control Pain control Electrolyte control DVT/GI prophylaxis Follow-up labs Neurology evaluation Plan discussed with patient's and nursing staff
[2020-02-16] VITALS (8 sets, daily range): BP systolic 133–162; BP diastolic 50–59
[2020-02-16] MEDS: PANTOPRAZOLE 40 MG 10ML VIAL IV SCH ×2 (02:02→16:09)
[2020-02-16] MEDS: LACTATED RINGER'S 1,000 ML INJ SCH ×2 (07:10→16:09)
[2020-02-16] MEDS: GABAPENTIN 100 MG CAP PO SCH ×3 (09:00→21:02)
[2020-02-16] MEDS: CLONIDINE HCL 0.1 MG TAB PO SCH ×2 (09:00→16:09)
[2020-02-16] MEDS: BACLOFEN 10 MG TAB PO SCH ×3 (09:00→21:02)
[2020-02-16] MEDS: HYDROCHLOROTHIAZIDE 25 MG TAB PO SCH (09:00)
[2020-02-16] MEDS: LOSARTAN POTASSIUM 100 MG TAB PO SCH (09:00)
[2020-02-16] MEDS: CEFTRIAXONE SOD 1 GM/NS 50 ML 50 ML IV SCH (12:44)
[2020-02-16] MEDS: ENOXAPARIN SOD INJ 40 MG/0.4 ML SYR SC SCH (16:09)
--- NOTE | 2020-02-16 19:00 | NUR ---
Bedside shift report received from morning nurse. Pt alert and oriented to name, lying in bed HOB 60 degrees. c/o mild leg pain, helped reposition legs. Call light within reach.
--- NOTE | 2020-02-16 20:40 | Progress Note ---
DATE: 02/15/2020 SUBJECTIVE: The patient with less pain on the right leg. Apparently, nurse said that she did not complain much about the right leg. She is receiving antibiotics for cellulitis as well. She is on DVT prophylaxis. No changes reported. MEDICATIONS: Per JUL. PHYSICAL EXAMINATION: Spastic right hemiplegia with aphasia, difficult to assess sensory exam. ASSESSMENT: Pain in the right lower extremity. We will increase her Neurontin slowly and also increase her baclofen to 50 mg t.i.d. Continue physical therapy. If symptoms persists for another week, then she will need a nerve conduction study and EMG to further evaluate for possibility of neuropathy or radiculopathy. The patient otherwise will continue with her current treatment. No diagnostic study will be done only if symptoms persist and if all other etiologies have been ruled out completely. Izzy Heaton MD AM/GEORGE /[id number]
[2020-02-17] VITALS: BP 140/46
[2020-02-17] MEDS: PANTOPRAZOLE 40 MG 10ML VIAL IV SCH (03:44)
[2020-02-17] MEDS: LACTATED RINGER'S 1,000 ML INJ SCH (03:44)
[2020-02-17 04:00] VITALS: BP 149/61
--- NOTE | 2020-02-17 07:00 | NUR ---
ASSUMED CARE. PATIENT RESTING IN BED. AWAKE AND ALERT. ACYANOTIC. NO DISTRESS NOTED. CALL LIGHT IN REACH. SIDE RAILS UP X2. BED LOW AND LOCKED.
[2020-02-17 07:43] VITALS: BP 172/53
[2020-02-17] MEDS: HYDROCHLOROTHIAZIDE 25 MG TAB PO SCH (08:14)
[2020-02-17] MEDS: GABAPENTIN 100 MG CAP PO SCH (08:14)
[2020-02-17] MEDS: LOSARTAN POTASSIUM 100 MG TAB PO SCH (08:14)
[2020-02-17] MEDS: CLONIDINE HCL 0.1 MG TAB PO SCH (08:14)
[2020-02-17] MEDS: BACLOFEN 10 MG TAB PO SCH (08:14)
[2020-02-17 09:00] VITALS: BP 172/53
[2020-02-17 11:25] VITALS: BP 154/61
[2020-02-17] MEDS ORDERED: BISACODYL5 MG PO (12:07)
[2020-02-17] MEDS ORDERED: COLACE100 MG PO (12:07)
[2020-02-17] MEDS ORDERED: BACLOFEN10 MG PO (12:07)
[2020-02-17] MEDS ORDERED: GABAPENTIN100 MG PO (12:07)
[2020-02-17] MEDS ORDERED: ONDANSETRON HCL 4 MG ORAL DISINTEGRATING TAB PO PRN (13:15)
--- NOTE | 2020-02-17 21:51 | NUR ---
discharge summary [id number]
--- NOTE | 2020-02-17 22:35 | Discharge Summary ---
PRIMARY CARE DOCTOR: Dr. Aly Le. HOSPITAL DOCTOR: Dr. Gareth Boo. PRIMARY DIAGNOSES: 1. Emergency hypertension. 2. Refractory spasms, refractory pain with acute right leg cramping. History of baseline right spastic hemiparesis. 3. Mild cellulitis. SECONDARY DIAGNOSES: 1. History of cerebrovascular accident and left middle cerebral artery. 2. Aneurysmal clipping in the past. 3. Partial aphasia. 4. Hypertension. 5. Osteoarthritis. 6. Syndrome of emesis/nausea, gastroenteritis versus constipation. HOSPITAL COURSE: The patient came to hospital facility with blood pressure 212/96. The patient was given emergency treatment. She had new worsening of lower extremity spasm on right side. She is given emergent therapy as well for this. Antibiotics were given for cellulitis and this improved. With better control, she was allowed for outpatient followup. Brain CT with no acute findings, but there were left pterional craniotomy changes with aneurysmal clip in left parasellar region, old large left MCA infarct, right frontal ventricular catheter shunt, generalized cerebral volume loss. Right leg venous ultrasound with no evidence of DVT on the right side. Femoral x-ray, head CT, tibia and fibula x-ray without any acute injury noted. Lumbar spine CT was recommended by Neurology with no acute changes, mild lumbar spondylosis with mild canal stenosis at L3-L4, mild left foraminal stenosis at L3-L4, right, mild foraminal stenosis L4-L5. The patient was deemed not feasible for MRI due to history of possible metal in her body that would interfere. Besides the Medicine, Neurology recommended that she would need a nerve conduction study and EMG to rule out neuropathy or radiculopathy if the patient persists for another week or 2. Otherwise, continue medical management with Neurontin and baclofen, which were newly placed and up titrating. FOLLOWUP: Follow up with Dr. Aly Le in one week. DIET: Continue current cardiac diet. ACTIVITY: As tolerated, the patient of course with limitation on mobility due to previous stroke. MEDICATIONS AT DISCHARGE: Please see discharge medication record for details. Greater than 30 minutes spent in care coordination today and discharge planning. MD JIMMIE Saleem/GEORGE /[id number]
== END 2020-02-17 13:39 | disposition home or self-care (01) | DRG 305 ==
LOC: FSED 09:32 → ERHOLD 12:23 → MED/SURG2 14:42
PROVIDERS: ADMIT Internal Medicine; ATTEND Internal Medicine
DX: I16.9 Hypertensive crisis, unspecified (principal); I16.1 Hypertensive emergency; I69.351 Hemiplegia and hemiparesis following cerebral infarction affecting right dominant side; L03.115 Cellulitis of right lower limb; M25.551 Pain in right hip; I10 Essential (primary) hypertension; K52.9 Noninfective gastroenteritis and colitis, unspecified; I69.320 Aphasia following cerebral infarction; M19.90 Unspecified osteoarthritis, unspecified site; K59.00 Constipation, unspecified; Z88.0 Allergy status to penicillin; Z91.040 Latex allergy status; Z95.828 Presence of other vascular implants and grafts; M47.816 Spondylosis without myelopathy or radiculopathy, lumbar region; Z11.59 Encounter for screening for other viral diseases; M62.3 Immobility syndrome (paraplegic)
CPT/HCPCS: 36415; 70450; 72131; 74019; 80053; 83690; 83735; 84100; 85025; 87040; 93971; 96361; 96374; 96375; 96376; 99284; J0360; J0696; J1650; J2270; J2405; J7121